=== PATIENT | male | born 1995 | race African-American/Black ===

== ENCOUNTER 2019-12-27 13:11 | Emergency (ER) | payer OTHER, SELFPAY ==
[2019-12-27] VITALS (12 sets, daily range): BP systolic 124–194; BP diastolic 42–176; PULSE 71–106; RESP 8–26; TEMP 37.1; O2SAT 71–100
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
== END 2019-12-27 16:03 | disposition home or self-care (01) ==
PROVIDERS: Emergency Provider Family Medicine
DX: S01.01XA Laceration without foreign body of scalp, initial encounter (principal); Y04.0XXA Assault by unarmed brawl or fight, initial encounter
CPT/HCPCS: 70450; 99284